=== PATIENT | male | born 1955 | race Caucasian/White ===

== ENCOUNTER 2024-12-21 17:51 | Emergency (ER) | payer MEDICARE, OTHER, SELFPAY ==
[2024-12-21 18:06] VITALS: BP 160/100
--- NOTE | 2024-12-21 20:25 | ED.SKININJ ---
HPI-Injury
General
Chief Complaint: Skin Problem
Source: patient
Exam Limitations: none
Time Seen by Provider: 12/21/24 19:57
History of Present Illness-Injury
Initial Injury comments:
69 year old male with laceration to right leg he sustained today. He cut his leg against a piece of sharp metal. Last tetanus vaccine unknown. No other complaints at this time
Past History
Past History
ED Past Medical History: None
ED Past Surgical History: None
Social History
Tobacco: Non-smoker
Personal:
Living: with family
Phy Exam
Physical Exam
Physical Exam:
General: Well-appearing male no acute distress
Skin: 3.5 cm laceration anterior lateral right proximal aiken. There is no tendon involvement. No significant bleeding no surrounding ecchymosis the wound is clean
Musculoskeletal exam: Good range of motion right ankle and knee
Course
Orders/Labs/Results
Orders:
Orders
12/21/24 20:24
Tetanus/Diphth/Acelpertussis [Adacel] 0.5 ml IM .ONCE ONE
Vital Signs
Initial and Last Documented VS:
Initial Vital Signs
Temp Pulse Resp BP Pulse Ox
98.2 F 83 16 160/100 98
12/21/24 18:06 12/21/24 18:06 12/21/24 18:06 12/21/24 18:06 12/21/24 18:06
Last Documented Vital Signs
Temp Pulse Resp BP Pulse Ox
98.2 F 83 16 160/100 98
12/21/24 18:06 12/21/24 18:06 12/21/24 18:06 12/21/24 18:06 12/21/24 18:06
MDM/Problems Addressed
Differential Diagnosis Includes:
Laceration right leg without tendon involvement. The wound was copiously irrigated with saline and anesthetized with 1% lidocaine with epinephrine. This was done in a local fashion. 4-0 Prolene was then used in a simple interrupted as well as
running fashion to provide wound edge approximation and hemostasis. A total of 10 sutures were required. Tetanus vaccine updated a dressing was applied stable for discharge with wound care instructions
*Pulse Oximetry
SaO2: 98
Oxygen Mode of Delivery: Room air
Patient hypoxic: no
*Critical Care Note
Total Time (30-74mins, 75-104mins- exclusive of procedures): Not Applicable
ED Attending Note
-
Portions of this chart may have been created with voice recognition software.� Occasional wrong word or��sound alike� substitutions may have occurred due to the inherent limitations of voice recognition software.
Discharge Plan
Departure
Patient Disposition: Home (Routine Discharge)
Date of Disposition: 12/21/24
Time of Disposition: 20:30
Patient with high blood pressure during this ER visit?: No
Discharge Problem:
Laceration
Instructions: Stitches - ED (DC)
Prescriptions:
No Action
acetaminophen 325 MG tablet
650 mg PO Q4HPRN PRN (Reason: temp greater 100.6) 0RF
cephalexin 500 MG capsule
500 mg PO QID Qty: 28 0RF
silver sulfadiazine 1 APPLIC cream
1 applic topical DAILY Qty: 1 0RF
Referrals:
Dominik Ruelas MD [Family Provider, Family Practice]
Activity Restrictions/Additional Instructions:
Keep clean. Change dressing daily. Have sutures removed in 12 to 14 days.
Interventions
Interventions:
*Risk Screen - Suicide Last Done: 12/21/24 18:06
*Neglect/Abuse Screening Last Done: 12/21/24 18:06
ED-Skin Assessment Last Done: 12/21/24 20:04
Discharge Date and Time
Print Language: GERMAN
[2024-12-21] MEDS: ADACEL 0.5 ML IM (20:51)
== END 2024-12-21 20:57 | disposition home or self-care (01) ==
LOC: EMR 17:51
PROVIDERS: EMERGENCY PHYSICIAN Emergency Medicine; FAMILY PHYSICIAN Family Medicine
DX: S81.811A Laceration without foreign body, right lower leg, initial encounter (principal); W26.8XXA Contact with other sharp object(s), not elsewhere classified, initial encounter; Z23 Encounter for immunization
CPT/HCPCS: 90471; 12002; 99282; 90715